=== PATIENT | female | born 1980 | race African-American/Black ===

== ENCOUNTER 2022-09-18 01:46 | Inpatient (IN) | payer MEDICAID ==
[~2022-09-18] VITALS: Ht 175.3 cm; Wt 77.1 kg
[2022-09-18 02:00] VITALS: BP 142/90
--- NOTE | 2022-09-18 03:00 | NUR ---
PHOTOGRAMMETRIST NOTES RECEIVED PT FROM Kali BUTTERFIELD. A/O X 4, ABLE TO MAKE NEEDS KNOWN. ORIENTED TO STAFF AND UNIT. PT IS ON NASAL CANULA OF 5LPM OF O2, TOLERATING WELL, BREATHING EVEN AND UNLABORED @ THIS TIME. PT WITH IV ACCESS @LAC #20G, PATENT, INTACT AND FLUSHES WELL WITH NO S/SX OF INFILTRATION 2 SITE NOTED. PT HAS EXTERNAL DENTAL HYGIENIST MOBILE COORDINATOR WITH CURRENT OF SINUS RHYTHM, HR OF 98 BPM. SKIN IS WARM AND DRY. PHOTOS OF SKIN ON LEFT HAND AND LEFT ARM IS TAKEN AND FILED ON PT CHART. SAFETY MEASURES INITIATED. BED PLACE AT ITS LOWEST AND LOCKED POSITION. SIDE RAILS UP X 2. BEDSIDE TABLE AND CALL LIGHT IS EASY REACH. BED ALARM IS ON. WILL CONTINUE TO MONITOR PT ACCORDINGLY.
[2022-09-18] MEDS ORDERED: LACT10SO3 PO (04:11)
[2022-09-18] MEDS ORDERED: PROM25TA15 PO (04:11)
[2022-09-18] MEDS ORDERED: DULO60CA45 PO (04:11)
[2022-09-18] MEDS ORDERED: PANT40TA49 PO (04:11)
[2022-09-18] MEDS ORDERED: SIME80TA15 PO (04:11)
[2022-09-18] MEDS ORDERED: ALBU18HF2 INH (04:11)
[2022-09-18] MEDS ORDERED: DIPH-530 PO (04:11)
[2022-09-18] MEDS ORDERED: OMEG1CAP55 PO (04:11)
[2022-09-18] MEDS ORDERED: HYDR500C2 PO (04:11)
[2022-09-18] MEDS ORDERED: ALPR1TAB7 PO (04:11)
[2022-09-18] MEDS ORDERED: CARI350T PO (04:11)
[2022-09-18] MEDS ORDERED: HYDR4TAB57 PO (04:11)
[2022-09-18] MEDS ORDERED: ASEN10TA9 SL (04:11)
[2022-09-18] MEDS ORDERED: METH750T3 PO (04:11)
[2022-09-18] MEDS ORDERED: FOLI1CAP7 PO (04:11)
[2022-09-18] MEDS ORDERED: METH10TA2 PO (04:11)
[2022-09-18] MEDS ORDERED: GABA-536 PO (04:11)
[2022-09-18] MEDS ORDERED: VARE1TAB PO (04:11)
[2022-09-18 05:18] VITALS: BP 142/90
[2022-09-18] MEDS: HYDROMORPHONE INJ 2 MG/ML DISP.SYRIN IV PRN ×5 (06:08→23:34)
[2022-09-18] MEDS: IV NS 0.9% 1,000 ML IV PRN ×2 (06:22→06:40)
--- NOTE | 2022-09-18 06:30 | NUR ---
INFORMED DR. WINTERS OF PT REQUEST FOR DIPHENHYDRAMINE INJ 25 MG (BENADRYL) FOR ITCHINESS AND PHENERGAN FOR HER NAUSEA. CHARGE NURSE ON DUTY IS INFORMED AND NOTIFIED. WILL CONTINUE MONITOR PT.
--- NOTE | 2022-09-18 07:00 | NUR ---
RN CLOSING NOTES. PT IS AWAKE AND RESTING COMFORTABLY IN BED, RESPONSIVE AND FOLLOWS VERBAL COMMAND. A/O X 4. NO S/SX OF RESPIRATORY DISTRESS NOTED @ THIS TIME. ON TELE MONITOR WITH CURRENT READING OF SINUS RHYTHM, HR OF 98 BPM. IV SITE ON LAC, PATENT, INTACT AND FLUSHES WELL WITH NO S & SX OF INFILTRATION. MEDICATIONS ADMINISTERED ACCORDINGLY PER MD'S ORDER. SAFETY MEASURES MAINTAINED. BED IS AT ITS LOWEST AND LOCKED POSITION. SIDE RAILS UP X 2. BEDSIDE TABLE AND CALL LIGHT W/IN REACH. BED ALARM IS ON. WILL ENDORSE TO THE NEXT SHIFT FOR CONTINUITY OF CARE.
--- NOTE | 2022-09-18 07:09 | NUR ---
AMUSEMENT OR RECREATION CARD CHECKER OPENING NOTES RECEIVED PATIENT AWAKE IN BED, A/Ox4, ABLE TO MAKE NEEDS KNOWN. ON 6L O2 VIA MASK, SOME ACCESSORY MUSCLE USE NOTED. ON TELE MONITORING SHOWING SINUS RHYTHM HR 85. PATIENT COMPLAINED OF ITCHINESS, WILL ADMIN PRN BENADRYL. IV ACCESS L AC #20 RUNNING NS @ 100 ML/HR, INTACT AND PATENT. PATIENT CONTINENT USES BEDSIDE COMMODE. SKIN INTACT. PATIENT COMPLAINED OF PAIN OF BACK, WILL ADMIN PAIN MEDICATION. SAFETY MEASURES IN PLACE: BED LOCKED AND IN LOWEST POSITION, HOB ELEVATED, CALL LIGHT WITHIN REACH, SIDE RAILS UPx2. WILL CONTINUE TO MONITOR.
[2022-09-18] MEDS ORDERED: IV NS 0.9% 1,000 ML IV PRN (07:30)
[2022-09-18] MEDS ORDERED: METHOCARBAMOL (750MG) 750 MG TABLET PO PRN (07:30)
[2022-09-18] MEDS ORDERED: MAGNESIUM HYDROXIDE 30 ML UDC PO PRN (07:30)
[2022-09-18] MEDS ORDERED: Z GUARD REMEDY 4 OZ OINT TP PRN (07:30)
[2022-09-18] MEDS ORDERED: ACETAMINOPHEN 325 MG TABLET PO PRN (07:30)
[2022-09-18] MEDS ORDERED: MAG HYDROX/AL HYDROX/SIMETH 30 ML UDC PO PRN (07:30)
[2022-09-18] MEDS ORDERED: ALPRAZOLAM 1 MG TABLET PO PRN (07:30)
[2022-09-18] MEDS: diphenhydrAMINE HCL 25 MG CAPSULE PO PRN ×2 (07:48→17:14)
[2022-09-18] MEDS ORDERED: LACTULOSE 10 G/15 ML UDC (PYXIS) PO PRN (08:00)
[2022-09-18] MEDS ORDERED: PANTOPRAZOLE 40 MG TABLET.DR PO PRN (08:00)
[2022-09-18 08:16] LABS: CALCIUM, SERUM 8.2 mg/dL (8.5-10.1); CREATININE 0.8 mg/dL (0.6-1.3); POTASSIUM 3.6 mmol/L (3.5-5.1)
[2022-09-18 08:24] LABS: BASOPHILS # (AUTO) 0.1 K/uL (0.0-0.2); BASOPHILS % (AUTO) 1.1 % (0.0-2.0); EOSINOPHILS % (AUTO) 3.1 % (0.0-6.0); HEMATOCRIT 21 % (33-45); HEMOGLOBIN 7.2 g/dL (11.5-14.8); LYMPHOCYTES # (AUTO) 3.6 K/uL (0.8-4.8); LYMPHOCYTES % (AUTO) 34.8 % (20.0-44.0); MEAN CORPUSCULAR HGB CONC 34 g/dl (31.0-36.0); MEAN CORPUSCULAR VOLUME 100 fL (82-100); MONOCYTES # (AUTO) 0.9 K/uL (0.1-1.30); MONOCYTES % (AUTO) 8.6 % (2.0-12.0); NEUTROPHILS # (AUTO) 5.4 K/uL (1.8-8.9); NEUTROPHILS % (AUTO) 52.4 % (43.0-81.0); PLATELET COUNT (AUTO) 302 K/uL (150-450); RED BLOOD CELL COUNT(AUTO) 2.11 MIL/uL (4.0-5.2); WHITE BLOOD COUNT (AUTO) 10.2 K/uL (4.3-11.0)
[2022-09-18] MEDS: VIT B CMPLX 3/FA/VIT C/BIOTIN 1 TAB TABLET PO SCH (08:42)
[2022-09-18] MEDS: PANTOPRAZOLE 40 MG TABLET.DR PO SCH (08:43)
[2022-09-18] MEDS: HYDROXYUREA 500 MG CAPSULE PO SCH (08:43)
[2022-09-18] MEDS: DULOXETINE HCL 30 MG CAPSULE.DR PO SCH ×2 (08:43→17:14)
[2022-09-18] MEDS: METHADONE HCL 10 MG TABLET PO SCH ×3 (08:44→21:00)
[2022-09-18] MEDS ORDERED: GABAPENTIN 300 MG CAPSULE PO SCH (09:00)
[2022-09-18] MEDS: CARISOPRODOL 350 MG TABLET PO SCH ×3 (09:27→17:13)
[2022-09-18] MEDS: ONDANSETRON HCL/PF 4 MG/2 ML VIAL IVP PRN ×2 (09:43→21:17)
--- NOTE | 2022-09-18 10:30 | NUR ---
RN NOTES PATIENT COMPLAINED OF NAUSEA AND PAIN. PRN ZOFRAN AND DILAUDID ADMINISTERED. WILL CONTINUE TO MONITOR.
[2022-09-18] MEDS: IV NS 0.9% 1,000 ML IV SCH ×2 (11:00→21:47)
[2022-09-18 12:00] VITALS: BP 109/79
[2022-09-18] MEDS: PROMETHAZINE HCL 25 MG TABLET PO SCH ×2 (12:26→19:55)
[2022-09-18] MEDS: GABAPENTIN 300 MG CAPSULE PO SCH ×2 (12:26→17:13)
--- NOTE | 2022-09-18 12:51 | NUR ---
RN NOTES PATIENT REQUESTED NASAL CANNULA, GIVEN TO PATIENT AND IS SATURATING WELL, STILL SOME EPISODES OF SOB BUT SATURATING IS IN THE HIGH 90s. WILL CONTINUE TO MONITOR.
[2022-09-18] MEDS: SIMETHICONE 80 MG TAB.CHEW PO PRN (14:16)
[2022-09-18 15:05] LABS: BASOPHILS # (AUTO) 0.1 K/uL (0.0-0.2); BASOPHILS % (AUTO) 1.1 % (0.0-2.0); EOSINOPHILS % (AUTO) 3.6 % (0.0-6.0); HEMATOCRIT 22 % (33-45); HEMOGLOBIN 7.3 g/dL (11.5-14.8); LYMPHOCYTES # (AUTO) 4.3 K/uL (0.8-4.8); LYMPHOCYTES % (AUTO) 39.9 % (20.0-44.0); MEAN CORPUSCULAR HGB CONC 33 g/dl (31.0-36.0); MEAN CORPUSCULAR VOLUME 101 fL (82-100); MONOCYTES # (AUTO) 0.8 K/uL (0.1-1.30); MONOCYTES % (AUTO) 7.5 % (2.0-12.0); NEUTROPHILS # (AUTO) 5.2 K/uL (1.8-8.9); NEUTROPHILS % (AUTO) 47.9 % (43.0-81.0); PLATELET COUNT (AUTO) 294 K/uL (150-450); RED BLOOD CELL COUNT(AUTO) 2.16 MIL/uL (4.0-5.2); WHITE BLOOD COUNT (AUTO) 10.8 K/uL (4.3-11.0)
[2022-09-18 15:26] LABS: THYROID STIMULATING HORMONE 3.087 uIU/mL (0.358-3.74)
[2022-09-18 16:00] VITALS: BP 97/68
[2022-09-18 17:07] LABS: ALBUMIN 3.5 g/dL (3.4-5.0); BILIRUBIN,DIRECT 0.8 mg/dL (0.0-0.2); BILIRUBIN,TOTAL 1.6 mg/dL (0.2-1.0); TOTAL PROTEIN, SERUM 7.1 g/dL (6.4-8.2)
--- NOTE | 2022-09-18 17:23 | NUR ---
RN NOTES PATIENT COMPLAINED OF PAIN 9/10 OF BACK, PRN DILAUDID ADMINISTERED. PATIENT ALSO REQUESTED PRN BENADRYL. ADMINISTERED. WILL CONTINUE TO MONITOR.
--- NOTE | 2022-09-18 18:48 | NUR ---
HAIR SAMPLE MATCHER CLOSING NOTES PATIENT SLEEPING IN BED, A/Ox4, ABLE TO MAKE NEEDS KNOWN. STABLE ON 6L O2 VIA NC, SOME ACCESSORY MUSCLE USE NOTED. ON TELE MONITORING SHOWING SINUS RHYTHM TACH 104. IV ACCESS L AC #20 RUNNING NS @ 100 ML/HR, INTACT AND PATENT. PATIENT CONTINENT USES BEDSIDE COMMODE. SKIN INTACT. SAFETY MEASURES MAINTAINED: BED LOCKED AND IN LOWEST POSITION, HOB ELEVATED, CALL LIGHT WITHIN REACH, SIDE RAILS UPx2. WILL ENDORSE TO NEXT SHIFT ANY JEFF.
[2022-09-18 19:04] LABS: BAND % (MANUAL) 2 % (0.0-5.0); EOSINOPHILS % (MANUAL) 3 % (0-4); LYMPHOCYTES % (MANUAL) 38 % (16-48); MONOCYTES % (MANUAL) 4 % (0-11.0); NEUTROPHILS % (MANUAL) 53 (42-76)
[2022-09-18 20:40] VITALS: BP 95/63
--- NOTE | 2022-09-18 20:54 | NUR ---
RETAIL ADVERTISING ACCOUNT EXECUTIVE OPENING NOTES PATIENT SLEEPING IN BED, A/Ox4, ABLE TO MAKE NEEDS KNOWN. PT RECEIVED DESATURATING ON 6L O2 VIA NC, SOME ACCESSORY MUSCLE USE NOTED PT WAS TITRATED UP STILL DESATURATING 80% PT WAS PLACED ON NON REBREATHER AND RESPIRATORY THERAPIST ASSESSED PT PT WAS 100% ON NON REBREATHER PT WAS TITRATED DOWN TO SIMPLE MASK 10L BUT CONTINUOS TO HAVE EPISODES OF DESATURATION. DOCTOR WAS CONTACTED RECEIVED STAT ORDER FOR CTA CHEST FROM ELECTRIC HOIST OPERATOR DR SMITH AWARE OF PLAN BUT CONTINUOUS TO FOCUS ON PAIN MANAGEMENT EXPLAINED TO PT RISKS WITH PAIN MANAGEMENT AT THIS TIME SHE CONTINUOUS TO HAVE EPISODES OF DESATURATION TO THE 88-90%. RADIOLOGY DEPARTMENT CALLED CONFIRMED RECEIVE AND SEEN ORDER . LAB UNABLE TO DRAW BLOOD PT HAD MULTIPLE INFORMED DR RECEIVED OR VIVIEN FOR MIDLINE CHARGE NURSE AWARE. URBAN PLANNER AWARE.ON TELE MONITORING SHOWING SINUS RHYTHM TACH 104. IV ACCESS LAC #20 RUNNING NS @ 100 ML/HR, INTACT AND PATENT. SAFETY MEASURES MAINTAINED: BED LOCKED AND IN LOWEST POSITION, HOB ELEVATED, CALL LIGHT WITHIN REACH, SIDE RAILS UPx2.
--- NOTE | 2022-09-18 21:00 | NUR ---
RN NOTE PTS METHADONE HELD PT HAVING SOB DESATURATING AT THIS TIME 80S.
--- NOTE | 2022-09-18 21:23 | NUR ---
RN NOTE PRN ZOFRAN GIVEN FOR NAUSEA TOLERATED WELL.
[2022-09-18] MEDS ORDERED: ASENAPINE 10 MG SL SCH (22:00)
[2022-09-18] MEDS ORDERED: IOHEXOL-350 100 ML VIAL IV ONE (22:43)
[2022-09-18] MEDS ORDERED: IV NS 0.9% 250 ML IV ONE (22:43)
[2022-09-18] MEDS ORDERED: CT SWABBABLE VALVE TRANS SET 1 EA INFUS.SET MC ONE (22:43)
--- NOTE | 2022-09-18 23:55 | NUR ---
RN NOTE PRN DILAUDID GIVEN FOR PAIN TOLERATED WELL.
[2022-09-19 00:21] VITALS: BP 117/71
[2022-09-19] MEDS: PROMETHAZINE HCL 25 MG TABLET PO SCH ×4 (01:01→18:39)
[2022-09-19] MEDS: diphenhydrAMINE HCL 25 MG CAPSULE PO PRN ×2 (02:43→09:40)
[2022-09-19] MEDS: HYDROMORPHONE INJ 2 MG/ML DISP.SYRIN IV PRN ×6 (02:43→23:07)
--- NOTE | 2022-09-19 02:43 | NUR ---
RN NOTE PRN DILAUDID AND BENADRYL GIVE TOLERATED WELL.
[2022-09-19] MEDS: ONDANSETRON HCL/PF 4 MG/2 ML VIAL IVP PRN ×2 (04:31→15:22)
--- NOTE | 2022-09-19 04:32 | NUR ---
RN NOTE PRN ZOFRAN GIVEN FOR NAUSEA TOLERATED WELL.
[2022-09-19 04:41] VITALS: BP 128/71
--- NOTE | 2022-09-19 05:58 | NUR ---
RN NOTE PRN DILAUDID GIVEN TOLERATED WELL.
[2022-09-19 06:26] LABS: BASOPHILS # (AUTO) 0.1 K/uL (0.0-0.2); BASOPHILS % (AUTO) 1.2 % (0.0-2.0); EOSINOPHILS % (AUTO) 1.7 % (0.0-6.0); LYMPHOCYTES # (AUTO) 3.3 K/uL (0.8-4.8); LYMPHOCYTES % (AUTO) 36.9 % (20.0-44.0); MEAN CORPUSCULAR HGB CONC 34 g/dl (31.0-36.0); MEAN CORPUSCULAR VOLUME 100 fL (82-100); MONOCYTES # (AUTO) 0.7 K/uL (0.1-1.30); MONOCYTES % (AUTO) 7.5 % (2.0-12.0); NEUTROPHILS # (AUTO) 4.7 K/uL (1.8-8.9); NEUTROPHILS % (AUTO) 52.7 % (43.0-81.0); PLATELET COUNT (AUTO) 259 K/uL (150-450); RED BLOOD CELL COUNT(AUTO) 2.04 MIL/uL (4.0-5.2); WHITE BLOOD COUNT (AUTO) 8.8 K/uL (4.3-11.0)
[2022-09-19 06:34] LABS: CALCIUM, SERUM 7.9 mg/dL (8.5-10.1); CREATININE 0.7 mg/dL (0.6-1.3); MAGNESIUM 2.1 mg/dL (1.8-2.4); PHOSPHORUS 4.2 mg/dL (2.5-4.9); POTASSIUM 3.8 mmol/L (3.5-5.1)
[2022-09-19] MEDS: IV NS 0.9% 1,000 ML IV SCH ×2 (06:48→16:55)
[2022-09-19 06:56] LABS: HEMATOCRIT 20 % (33-45)
--- NOTE | 2022-09-19 07:50 | NUR ---
FINANCIAL SERVICE REPRESENTATIVE OPENING NOTE PATIENT SLEEPING IN BED, A/Ox4, ABLE TO MAKE NEEDS KNOWN. STABLE ON 10L O2 VIA FACEMASK, SOME ACCESSORY MUSCLE USE NOTED. ON TELE MONITORING SHOWING SR @92BPM. IV ACCESS L AC #20 RUNNING NS @ 100 ML/HR, INTACT AND PATENT. PATIENT CONTINENT USES BEDSIDE COMMODE. SKIN INTACT. SAFETY MEASURES MAINTAINED: BED LOCKED AND IN LOWEST POSITION, HOB ELEVATED, CALL LIGHT WITHIN REACH, SIDE RAILS UPx2. WILL CONTINUE TO MONITOR.
[2022-09-19 08:00] VITALS: BP 117/74
[2022-09-19] MEDS: GABAPENTIN 300 MG CAPSULE PO SCH ×3 (08:56→16:30)
[2022-09-19] MEDS: METHADONE HCL 10 MG TABLET PO SCH ×3 (08:56→21:54)
[2022-09-19] MEDS: HYDROXYUREA 500 MG CAPSULE PO SCH (08:57)
[2022-09-19] MEDS: PANTOPRAZOLE 40 MG TABLET.DR PO SCH (08:57)
[2022-09-19] MEDS: DULOXETINE HCL 30 MG CAPSULE.DR PO SCH ×2 (08:57→16:30)
[2022-09-19] MEDS: VIT B CMPLX 3/FA/VIT C/BIOTIN 1 TAB TABLET PO SCH (08:57)
[2022-09-19] MEDS ORDERED: FUROSEMIDE 20 MG/2 ML VIAL IV PRN (09:00)
[2022-09-19] MEDS: CARISOPRODOL 350 MG TABLET PO SCH ×3 (09:03→16:30)
--- NOTE | 2022-09-19 09:40 | NUR ---
RN NOTE PATIENT COMPLAINED OF PAIN 9/10 OF BACK, PRN DILAUDID ADMINISTERED. PATIENT ALSO REQUESTED PRN BENADRYL. ADMINISTERED. WILL CONTINUE TO MONITOR.
[2022-09-19 11:06] LABS: EOSINOPHILS % (MANUAL) 2 % (0-4); LYMPHOCYTES % (MANUAL) 44 % (16-48); MONOCYTES % (MANUAL) 6 % (0-11.0); NEUTROPHILS % (MANUAL) 48 (42-76)
[2022-09-19 12:01] VITALS: BP 132/87
[2022-09-19 12:10] LABS: HEMOGLOBIN 6.9 g/dL (11.5-14.8)
[2022-09-19] MEDS ORDERED: CT SWABBABLE VALVE TRANS SET 1 EA INFUS.SET MC ONE (12:14)
[2022-09-19] MEDS ORDERED: IV NS 0.9% 0 ML IV ONE (12:14)
[2022-09-19] MEDS ORDERED: IOHEXOL-350 100 ML VIAL IV ONE (12:14)
--- NOTE | 2022-09-19 12:35 | NUR ---
RN NOTE PATIENT COMPLAINED OF PAIN 9/10 OF BACK PAIN, PRN DILAUDID ADMINISTERED. WILL CONTINUE TO MONITOR.
[2022-09-19] MEDS: diphenhydrAMINE HCL 50 MG/ML VIAL IV PRN (12:46)
--- NOTE | 2022-09-19 15:40 | NUR ---
RN NOTE PATIENT COMPLAINED OF PAIN AND REQUESTED PRN DILAUDID, ADMINISTERED. WILL CONTINUE TO MONITOR.
[2022-09-19 16:02] VITALS: BP 125/79
--- NOTE | 2022-09-19 18:30 | NUR ---
LATEX THREAD MACHINE OPERATOR CLOSING NOTE PATIENT SLEEPING IN BED, A/Ox4, HER MOTHER BY BEDSIDE, ABLE TO MAKE NEEDS KNOWN. STABLE ON 15L O2 VIA NRM. ON TELE MONITORING SHOWING SINUS RHYTHM TACH 106. IV ACCESS L AC #20 RUNNING NS @ 100 ML/HR, INTACT AND PATENT. IV ACCESS R UA ML, INTACT AND PATENT, SL. PATIENT CONTINENT USES BEDSIDE COMMODE. PRESCRIBED MEDS GIVEN. AWAITING LAB FOR PRBC, ORDERED IN THE MORNING, CHECKED WITH LAB, NOT READY YET. SAFETY MEASURES MAINTAINED: BED LOCKED AND IN LOWEST POSITION, HOB ELEVATED, CALL LIGHT WITHIN REACH, SIDE RAILS UPx2. WILL ENDORSE TO NEXT SHIFT ANY JEFF.
[2022-09-19 20:00] VITALS: BP 125/69
--- NOTE | 2022-09-19 20:20 | NUR ---
PICTURE ENLARGER OPENING NOTES: RECEIVED PATIENT SLEEP IN BED ACCOMPANIED BY FAMILY, BED IN LOW POSITION, CALL LIGHTS WITHIN REACH, NO COMPLAIN OF PAIN AND DISCOMFORT AT THIS TIME, ON NONE REBREATHER MASK AT 15LPM SATURATING AT 98-100% PATIENT IS FOR BLOOD TRANSFUSION AWAITING FOR BLOOD, PATIENT ON TELE MONITOR -SR82, IV LINE AT RAC#20 WITH ONGOING 0.9NSS@100ML/HR INFUSING WELL, PATIENT KEPT CLEAN AND DRY ALL NEEDS MET WILL CONTINUE TO MONITOR
[2022-09-19] MEDS: CEFEPIME 2 GM in IV D5W 100 ML IV SCH (21:15)
[2022-09-19 21:21] LABS: HEMOGLOBIN 6.5 g/dL (11.5-14.8)
--- NOTE | 2022-09-19 21:45 | NUR ---
RN NOTES: RECEIVED A CRITICAL LABS OF HGB-6.5 ABD HCT-1.9 PREVIOUS AT 1118 HGB-6.9 AND HCT-20 PATIENT HAS A STANDING ORDER OF BLOOD TRANSFUSION OF 2 UNITS PRBC IN AM, PATIENT HAS A HX OF ANTIBODIES TO BLOOD PRODUCTS, SPOKE TO LABS MELVIN TO MADE A FOLLOW UP PER STAFF STILL AWAITING FOR BLOOD PRODUCT FROM [facility], HOSPITALIST DR MURRAY WAS MADE AWARE, WILL CONTINUE TO MONITOR.
[2022-09-20] VITALS: BP 138/97
[2022-09-20] MEDS: diphenhydrAMINE HCL 50 MG/ML VIAL IV PRN ×3 (00:36→23:10)
[2022-09-20] MEDS: PROMETHAZINE HCL 25 MG TABLET PO SCH ×4 (00:43→18:33)
[2022-09-20] MEDS: HYDROMORPHONE INJ 2 MG/ML DISP.SYRIN IV PRN ×6 (03:25→21:15)
[2022-09-20] MEDS: IV NS 0.9% 1,000 ML IV SCH ×3 (03:26→23:02)
[2022-09-20] MEDS: CEFEPIME 2 GM in IV D5W 100 ML IV SCH ×3 (05:17→21:35)
--- NOTE | 2022-09-20 06:58 | NUR ---
MILITARY LAWYER CLOSING NOTES: PATIENT AWAKE IN BED, ACCOMPANIED BY FAMILY, BED IN LOW POSITION CALL LIGHTS WITHIN REACH, NO COMPLAIN OF PAIN AND DISCOMFORT AT THIS TIME, ON NONE REBREATHER MASK AT 12LPM SATURATING WELL, PATIENT IS A/O X4 ABLE TO MAKE NEEDS KNOWN, AMBULATORY TO BED SIDE COMMODE WITH ASSIST, WITH IV LINE AT RAC#20 WITH ONGOING 0.9NSS@100ML/HR INFUSING WELL, WITH STEPHIE ML, ON TELE MONITOR- SR-100,PATIENT IS AWAITING FOR BLOOD TRANSFUSION WITH MOST RECENT HGB-6.5, NO BLEEDING WAS OBSERVED, PATIENT ON PAIN MANAGEMENT, KEPT CLEAN AND DRY ALL NEEDS MET ENDORSE TO INCOMING SHIFT.
--- NOTE | 2022-09-20 07:20 | NUR ---
MANUFACTURING ENGINEER ASSEMBLY OPENING NOTE RECEIVED PATIENT IN BED ALERT AND ORIENTED X4, ABLE TO MAKE NEEDS KNOWN. PATIENT ON OXYGEN AT 13LPM VIA NON REBREATHER MASK SATURATING AT 98%. ON HIGH BACK REST. COMPLAINED OF SOME DISCOMFORT, COMFORT MEASURES PROVIDED. ON TELE MONITOR READING ST AT 110 BPM. WITH LEFT UPPER ARM MIDLINE WITH ONGOING NS RUNNING AT 100ML/HR INFUSING WELL. STILL FOR BT OF 2U PRBC, NOT AVAILABLE AT THIS TIME, WILL FOLLOW UP. BED IN LOWEST LOCKED POSITION, ALARM ON, CALL LIGHT WITHIN REACH. WILL CONTINUE WITH PLAN OF CARE.
[2022-09-20 07:34] LABS: BASOPHILS # (AUTO) 0.1 K/uL (0.0-0.2); BASOPHILS % (AUTO) 0.8 % (0.0-2.0); EOSINOPHILS % (AUTO) 1.8 % (0.0-6.0); HEMATOCRIT 21 % (33-45); LYMPHOCYTES # (AUTO) 3.1 K/uL (0.8-4.8); LYMPHOCYTES % (AUTO) 32.1 % (20.0-44.0); MEAN CORPUSCULAR HGB CONC 34 g/dl (31.0-36.0); MEAN CORPUSCULAR VOLUME 102 fL (82-100); MONOCYTES # (AUTO) 0.8 K/uL (0.1-1.30); MONOCYTES % (AUTO) 8.2 % (2.0-12.0); NEUTROPHILS # (AUTO) 5.6 K/uL (1.8-8.9); NEUTROPHILS % (AUTO) 57.1 % (43.0-81.0); PLATELET COUNT (AUTO) 236 K/uL (150-450); RED BLOOD CELL COUNT(AUTO) 2.02 MIL/uL (4.0-5.2); WHITE BLOOD COUNT (AUTO) 9.7 K/uL (4.3-11.0)
[2022-09-20 07:39] LABS: HEMOGLOBIN 6.9 g/dL (11.5-14.8)
--- NOTE | 2022-09-20 07:45 | NUR ---
BOAT HOIST OPERATOR HELPER NOTE FOLLOW UP MADE REGARDING BLOOD FROM [facility]. SPOKE WITH NOVEMBER, SHE SAID THERE IS STILL NO BLOOD AVAILABLE FROM [facility]. FOR BLOOD TRANSFUSION OF 2 UNITS PRBC ONCE AVAILABLE.
[2022-09-20 08:00] VITALS: BP 116/81
[2022-09-20 08:07] LABS: HAPTOGLOBIN <10 mg/dL (33-278); IMMUNOGLOBULIN A, SERUM 258 mg/dL (87-352); IMMUNOGLOBULIN G, SERUM 1714 mg/dL (586-1602); IMMUNOGLOBULIN M, SERUM 254 mg/dL (26-217)
[2022-09-20] MEDS: HYDROXYUREA 500 MG CAPSULE PO SCH (09:00)
[2022-09-20] MEDS: VIT B CMPLX 3/FA/VIT C/BIOTIN 1 TAB TABLET PO SCH (09:34)
[2022-09-20] MEDS: VARENICLINE TARTRATE 1 MG PO SCH ×2 (09:34→18:23)
[2022-09-20] MEDS: DULOXETINE HCL 30 MG CAPSULE.DR PO SCH ×2 (09:34→18:23)
[2022-09-20] MEDS: PANTOPRAZOLE 40 MG TABLET.DR PO SCH (09:35)
[2022-09-20] MEDS: CARISOPRODOL 350 MG TABLET PO SCH ×3 (09:35→18:26)
[2022-09-20] MEDS: GABAPENTIN 300 MG CAPSULE PO SCH ×3 (09:35→18:22)
[2022-09-20] MEDS: METHADONE HCL 10 MG TABLET PO SCH ×3 (09:36→21:00)
[2022-09-20] MEDS: [UNRECOGNIZED DRUG - OTHER] PO SCH (09:36)
[2022-09-20] MEDS ORDERED: PROCHLORPERAZINE EDISYLATE 10 MG/2 ML VIAL IVP PRN (11:00)
[2022-09-20] MEDS: SIMETHICONE 80 MG TAB.CHEW PO PRN (12:32)
[2022-09-20 12:41] LABS: EOSINOPHILS % (MANUAL) 1 % (0-4); LYMPHOCYTES % (MANUAL) 31 % (16-48); MONOCYTES % (MANUAL) 6 % (0-11.0); NEUTROPHILS % (MANUAL) 62 (42-76)
--- NOTE | 2022-09-20 13:00 | NUR ---
ORACLE REPORTS DEVELOPER NOTE SPOKE WITH MAY OF BLOOD BANK TO CHECK ON THE BLOOD. SHE SAID THAT PER [facility], THE TECH IN CHARGE OF THE BLOOD WILL COME IN AT 1500, THEY WILL CALL WHEN THEY HEAR ANYTHING. CHARGE NURSE NOTIFIED.
[2022-09-20 15:07] LABS: *SPE ALPHA-1-GLOBULIN 0.3 g/dL (0.0-0.4); *SPE ALPHA-2-GLOBULIN 0.5 g/dL (0.4-1.0); *SPE BETA GLOBULIN 0.8 g/dL (0.7-1.3); *SPE M-SPIKE Not Observed g/dL (Not Observed)
--- NOTE | 2022-09-20 16:01 | NUR ---
NEEDLE LOOM OPERATOR NOTE FOLLOW UP MADE IN BLOOD BANK, SPOKE WITH AUGUSTUS. BLOOD STILL NOT AVAILABLE.
[2022-09-20 16:07] VITALS: BP 96/56
[2022-09-20] MEDS: ONDANSETRON HCL/PF 4 MG/2 ML VIAL IVP PRN (17:18)
--- NOTE | 2022-09-20 19:15 | NUR ---
HEARING AID CONSULTANT CLOSING NOTE PATIENT IN BED ASLEEP BUT EASILY WOKEN UP. SHE IS ALERT AND ORIENTED X4, ABLE TO MAKE NEEDS KNOWN. PATIENT ON OXYGEN AT 10LPM VIA NON REBREATHER MASK SATURATING AT 98%, NOTED TO DESATURATE WHEN SHE SLEEPS DEPENDING ON POSITION AND WHEN SHE ACCIDENTALLY REMOVES HER MASK. ON HIGH BACK REST. COMPLAINED OF SOME DISCOMFORT, COMFORT MEASURES PROVIDED. ON TELE MONITOR READING ST AT 110 BPM. WITH LEFT UPPER ARM MIDLINE WITH ONGOING NS RUNNING AT 100ML/HR INFUSING WELL. PAIN MANAGED ACCORDINGLY. STILL FOR BT OF 2U PRBC, NOT AVAILABLE SPOKE WITH AUGUSTUS CHARGE NURSE AWARE. BED IN LOWEST LOCKED POSITION, ALARM ON, CALL LIGHT WITHIN REACH. WILL ENDORSE TO NEXT SHIFT FOR CONTINUITY OF CARE.
--- NOTE | 2022-09-20 19:30 | NUR ---
COTTON TIPPER OPENING NOTE PATIENT IN BED ASLEEP BUT EASILY WOKEN UP. SHE IS ALERT AND ORIENTED X4, ABLE TO MAKE NEEDS KNOWN. PATIENT ON OXYGEN AT 14LPM VIA NON REBREATHER MASK SATURATING AT 98%, NOTED TO DESATURATE WHEN SHE SLEEPS DEPENDING ON POSITION AND WHEN SHE ACCIDENTALLY REMOVES HER MASK. ON HIGH BACK REST. COMPLAINED OF SOME DISCOMFORT, COMFORT MEASURES PROVIDED. ON TELE MONITOR READING ST AT 110 BPM. WITH LEFT UPPER ARM MIDLINE WITH ONGOING NS RUNNING AT 100ML/HR INFUSING WELL. PAIN MANAGED ACCORDINGLY. STILL FOR BT OF 2U PRBC, NOT AVAILABLE, CHARGE NURSE AWARE. BED IN LOWEST LOCKED POSITION, ALARM ON, CALL LIGHT WITHIN REACH.
[2022-09-20 20:00] VITALS: BP 88/69
[2022-09-20 20:50] LABS: HEMOGLOBIN 6.7 g/dL (11.5-14.8)
--- NOTE | 2022-09-20 22:00 | NUR ---
RN NOTE RECEIVED CALL FROM LAB PT HGB 6.7 PER BLOOD BANK WILL REACH OUT TO [facility] AGAIN REGARDING BLOOD WITH CALL US BACK WITH ANY UPDATES.
--- NOTE | 2022-09-20 22:14 | NUR ---
RN NOTE PRN DILAUDID GIVEN TOLERATED WELL.
--- NOTE | 2022-09-20 23:16 | NUR ---
RN NOTE PRN BENADRYL GIVEN AND TOLERATED WELL. PT NEED BY REGIONAL RECRUITER AT THIS TIME NO ORDERS A THIS TIME.
[2022-09-21] VITALS (17 sets, daily range): BP systolic 27–145; BP diastolic 18–103
[2022-09-21] MEDS: PROMETHAZINE HCL 25 MG TABLET PO SCH ×5 (00:14→17:21)
[2022-09-21] MEDS: HYDROMORPHONE INJ 2 MG/ML DISP.SYRIN IV PRN ×6 (00:45→20:19)
--- NOTE | 2022-09-21 04:22 | NUR ---
RN NOTE SPOKE TO BLOOD BANK MELVIN WE ARE STILL WAITING FOR THE BLOOD FROM THE [facility] NO UPDATES AT THIS TIME.
[2022-09-21] MEDS: CEFEPIME 2 GM in IV D5W 100 ML IV SCH ×3 (04:49→20:16)
--- NOTE | 2022-09-21 05:10 | NUR ---
RN NOTE PRN DILAUDID GIVEN TOLERATED WELL.
[2022-09-21 06:15] LABS: BASOPHILS # (AUTO) 0.1 K/uL (0.0-0.2); BASOPHILS % (AUTO) 0.7 % (0.0-2.0); EOSINOPHILS % (AUTO) 0.5 % (0.0-6.0); HEMATOCRIT 20 % (33-45); LYMPHOCYTES # (AUTO) 3.3 K/uL (0.8-4.8); LYMPHOCYTES % (AUTO) 31.4 % (20.0-44.0); MEAN CORPUSCULAR HGB CONC 34 g/dl (31.0-36.0); MEAN CORPUSCULAR VOLUME 102 fL (82-100); MONOCYTES # (AUTO) 1.1 K/uL (0.1-1.30); MONOCYTES % (AUTO) 10.1 % (2.0-12.0); NEUTROPHILS % (AUTO) 57.3 % (43.0-81.0); PLATELET COUNT (AUTO) 194 K/uL (150-450); RED BLOOD CELL COUNT(AUTO) 1.94 MIL/uL (4.0-5.2); WHITE BLOOD COUNT (AUTO) 10.4 K/uL (4.3-11.0)
[2022-09-21 06:16] LABS: HEMOGLOBIN 6.6 g/dL (11.5-14.8)
[2022-09-21 06:40] LABS: POTASSIUM 3.8 mmol/L (3.5-5.1)
[2022-09-21 06:41] LABS: CALCIUM, SERUM 7.6 mg/dL (8.5-10.1); MAGNESIUM 2.2 mg/dL (1.8-2.4); PHOSPHORUS 3.4 mg/dL (2.5-4.9)
--- NOTE | 2022-09-21 06:56 | NUR ---
ACID TREATER CLOSING NOTE PATIENT IN BED ASLEEP BUT EASILY WOKEN UP. SHE IS ALERT AND ORIENTED X4, ABLE TO MAKE NEEDS KNOWN. PATIENT ON OXYGEN AT 14LPM VIA NON REBREATHER MASK SATURATING AT 98%NOTED TO DESATURATE WHEN SHE SLEEPS DEPENDING ON POSITION AND WHEN SHE ACCIDENTALLY REMOVES HER MASK. ON HIGH BACK REST. COMPLAINED OF SOME DISCOMFORT, COMFORT MEASURES PROVIDED. ON TELE MONITOR READING ST AT 105 BPM. WITH LEFT UPPER ARM MIDLINE S/L WITH LAC #20G WITH ONGOING NS RUNNING AT 100ML/HR INFUSING WELL. PAIN MANAGED ACCORDINGLY. STILL FOR BT OF 2U PRBC, NOT AVAILABLE, CHARGE NURSE AWARE. BED IN LOWEST LOCKED POSITION, ALARM ON, CALL LIGHT WITHIN REACH.
--- NOTE | 2022-09-21 07:30 | NUR ---
PICKER FEEDER NOTES PT IN BED, AWAKE, ALERT AND ORIENTED, NO COMPLAINT OF PAIN AT THIS TIME, NOT IN DISTRESS, O2 SAT AT 93%, CALL LIGHT WITHIN REACH, KEPT COMFORTABLE IN BED.
[2022-09-21] MEDS: GABAPENTIN 300 MG CAPSULE PO SCH ×4 (08:10→17:19)
[2022-09-21] MEDS: PANTOPRAZOLE 40 MG TABLET.DR PO SCH (08:10)
[2022-09-21] MEDS: DULOXETINE HCL 30 MG CAPSULE.DR PO SCH ×2 (08:10→17:19)
[2022-09-21] MEDS: CARISOPRODOL 350 MG TABLET PO SCH ×4 (08:10→17:19)
[2022-09-21] MEDS: HYDROXYUREA 500 MG CAPSULE PO SCH (08:10)
[2022-09-21] MEDS: VIT B CMPLX 3/FA/VIT C/BIOTIN 1 TAB TABLET PO SCH (08:10)
[2022-09-21] MEDS: METHADONE HCL 10 MG TABLET PO SCH ×4 (08:11→21:00)
[2022-09-21] MEDS: [UNRECOGNIZED DRUG - OTHER] PO SCH (08:12)
[2022-09-21] MEDS: VARENICLINE TARTRATE 1 MG PO SCH ×2 (08:12→17:19)
[2022-09-21] MEDS: IV NS 0.9% 1,000 ML IV SCH (08:27)
[2022-09-21] MEDS: diphenhydrAMINE HCL 50 MG/ML VIAL IV PRN ×2 (08:37→16:03)
[2022-09-21] MEDS: ONDANSETRON HCL/PF 4 MG/2 ML VIAL IVP PRN ×2 (08:37→16:03)
[2022-09-21 09:15] LABS: HEMOGLOBIN 6.6 g/dL (11.5-14.8)
--- NOTE | 2022-09-21 09:51 | NUR ---
HISTORICAL SITE GUIDE NOTES PT SEEN AND EXAMINED BY DR. DAVIS, NEW ORDERS GIVEN, NOTED AND CARRIED OUT.
[2022-09-21] MEDS ORDERED: NA PHOS,M-B/NA PHOS,DI-BA 1 EA ENEMA RC ONE (10:00)
--- NOTE | 2022-09-21 10:55 | NUR ---
STAFF DEVELOPMENT EDUCATOR NOTES PT SEEN AND EXAMINED BY DR. GRIFFITH, PLAN OF CARE DISCUSSED WITH PT AND PT'S MOM KODY AT BEDSIDE, VERBALIZED UNDERSTANDING.
[2022-09-21] MEDS: methylPREDNISolone SOD SUCC 125 MG/2ML VIAL IV SCH ×2 (11:47→17:19)
--- NOTE | 2022-09-21 14:49 | NUR ---
PROJECT BUYER NOTES NEW TYPE AND SCREEN DONE, AWAITING PRBC, PER BLOOD BANK BLOOD IS WITH THEM BUT NEED TO CHECK TYPE AND SCREEN RESULT, SAID MIGHT TAKE FEW HOURS, PATIENT AND MOM AWARE.
--- NOTE | 2022-09-21 14:52 | NUR ---
SEISMIC SURVEY ASSISTANT NOTES 1300 MEDS NOT GIVEN, PT SLEEPY AND DROWSY, O2 SAT AT 91% ON NON REBREATHER MASK AT 15LMP.
[2022-09-21 15:17] LABS: BASOPHILS % (MANUAL) 0 % (0.0-2.0); EOSINOPHILS % (MANUAL) 0 % (0-4); LYMPHOCYTES % (MANUAL) 32 % (16-48); MONOCYTES % (MANUAL) 4 % (0-11.0); NEUTROPHILS % (MANUAL) 64 (42-76)
--- NOTE | 2022-09-21 16:50 | NUR ---
EQUIPMENT CLEANER AND TESTER NOTES FOLLOWED UP PRBC AT THE BLOOD BANK, STILL NOT READY FOR VOICE TEACHER YET, WILL CONTINUE TO FOLLOW UP.
--- NOTE | 2022-09-21 18:54 | NUR ---
STOKER ERECTOR NOTES PT IN BED, ASLEEP, EASY TO AROUSE, ALERT AND VERBALLY RESPONSIVE, VITALS STABLE, NOT IN DISTRESS, O2 SAT ON THE LOW 90S WITH 15LPM VIA NRB MASK, STARTED BLOOD TRANSFUSION, TOLERATES WELL, WILL CONTINUE TO MONITOR AND WILL ENDORSE TO PHOTO OFFSET PRINTER NURSE FOR CONTINUITY OF CARE.
--- NOTE | 2022-09-21 19:30 | NUR ---
APPLIED SCIENCE AND TECHNOLOGIES DEAN NOTES ST-104 ON TELE MONITOR.RECEIVED ON BED A/O C4,WITH FAMILY MEMBERS AT BEDSIDE.ON NON REBREATHER MASK AT 1OLITERS TO KEEP O2 SAT ABOVE 90%. 96% AT THE MOMENT.FIRST UNIT OF PRBC IN PROGRESS AT 100ML/HR INFUSING ON JAEL MIDLINE,VIA IV PUMP.WITH SALINE LOCK ON LEFT AC FOR MEDS.CONTINENT OF B/B BY BSC OR BEDPAN.HOB ELEVATED,DIMINISHED BREATH SOUND ON RIGHT LOWER LUNG FIELD.FULL CODE,CALL LIGHT IN REACH,WILL CONTINUE TO MONITOR STATUS.
--- NOTE | 2022-09-21 19:55 | NUR ---
COMMERCIAL TRAILER TRUCK DRIVER NOTES FEELING NAUSEATED,COMPAZINE 2.5MG IV GIVEN ORDERED.
--- NOTE | 2022-09-21 20:19 | NUR ---
AMERICAN HISTORY TEACHER NOTES PAIN MANAGEMENT C/O GENERALIZED PAIN 8/10 ON PAIN SCALE,DILAUDID 2MG IV GIVEN ORDERED AND PER PATIENT REQUEST.VITAL SIGNS STABLE.
--- NOTE | 2022-09-21 21:00 | NUR ---
SUPERVISOR TRAIN OPERATIONS NOTES METHADONE 10MG PO HELD,PATIENT SLEEPING,DROWSY WITH DILAUDID 2MG IV ADMINISTERED AT 2019
--- NOTE | 2022-09-21 21:52 | NUR ---
MECHANICAL CAD DESIGNER NOTES FIRST UNIT OF PRBC COMPLETED,NO SOB NOTED,NS FLUSHING INITIATED.HOB ELEVATED,O2 AT 15L NON RE BREATHER MASK,O2 SAT 97%.
--- NOTE | 2022-09-21 22:00 | NUR ---
DIRECTOR OF PROGRAMMING NOTES WENT INTO THE ROOM AND NOTED PATIENT HAVING JITTERY MOVEMENT ON LOWER EXTREMITIES.PER RECORD,PATIENT DONT HAVE ANY HX ON SEIZURE ACTIVITY.
--- NOTE | 2022-09-21 22:05 | NUR ---
SIGNAL AND COMMUNICATIONS MAINTAINER NOTES RUBBER CUTTER AND SHAPE CARVER FISH WENT DOWN TO REASSESS PATIENT.
--- NOTE | 2022-09-21 22:08 | NUR ---
ECONOMICS LECTURER NOTES ACCU-CHECK BLOOD SUGAR CHECK 132MG/DL THIS TIME,NONE RESPONSIVE.
--- NOTE | 2022-09-21 22:15 | NUR ---
DIGITAL PRINT OPERATOR NOTES RAPID RESPONSE WAS CALLED THIS TIME.
--- NOTE | 2022-09-21 22:25 | NUR ---
LEAD MANUFACTURING ENGINEERING TECH NOTES NARCAN 0.4 MG SLOW IVP GIVEN BY HOSPITALIST JUSTIN SLOAN.AWAKE,OPEN EYES BUT STILL NON VERY DROWSY.VITAL SIGNS OF 170/72,HR-122,O2 SAT 100%
--- NOTE | 2022-09-21 22:30 | NUR ---
GYROSCOPE TECHNICIAN NOTES STILL VERY DROWSY,OPEN EYES,NO FOCUS, ANOTHER DOSE OF NARCAN 0.4MG GIVEN IV PUSH BY BISCUITWARE BRUSHER NURSE FISH,BP 132/19.BOLUS ON GOING.
[2022-09-21] MEDS ORDERED: NALOXONE HCL 0.4 MG/ML AMPUL ONE ×3 (22:33→23:09)
--- NOTE | 2022-09-21 22:45 | NUR ---
HOT ROLL LAMINATOR NOTES ABD WAS DRAWN,AWAITING FOR RESULT.
--- NOTE | 2022-09-21 23:00 | NUR ---
SALES SUPPORT REP NOTES PATIENT WAS TRANSFERRED TO ICU FOR FURTHER EVALUATION AND MANAGEMENT.
[2022-09-21] MEDS ORDERED: NALOXONE HCL 0.4 MG/ML AMPUL IV STA (23:13)
--- NOTE | 2022-09-21 23:15 | NUR ---
CARBON FURNACE OPERATOR NOTES PLACED A CALL TO MOTHER NAMED KODY BRENNER,MADE AWARE OF PATIENT STATUS.
[2022-09-21 23:25] LABS: BASOPHILS % (AUTO) 0.4 % (0.0-2.0); EOSINOPHILS % (AUTO) 0.2 % (0.0-6.0); HEMATOCRIT 21 % (33-45); LYMPHOCYTES # (AUTO) 3.3 K/uL (0.8-4.8); LYMPHOCYTES % (AUTO) 39.5 % (20.0-44.0); MEAN CORPUSCULAR HGB CONC 31 g/dl (31.0-36.0); MEAN CORPUSCULAR VOLUME 104 fL (82-100); MONOCYTES # (AUTO) 0.3 K/uL (0.1-1.30); MONOCYTES % (AUTO) 3.9 % (2.0-12.0); NEUTROPHILS # (AUTO) 4.7 K/uL (1.8-8.9); PLATELET COUNT (AUTO) 133 K/uL (150-450); WHITE BLOOD COUNT (AUTO) 8.5 K/uL (4.3-11.0)
[2022-09-21 23:29] LABS: RED BLOOD CELL COUNT(AUTO) 1.98 MIL/uL (4.0-5.2)
[2022-09-21] MEDS ORDERED: FUROSEMIDE 40 MG/4 ML VIAL IV ONE (23:30)
[2022-09-21 23:33] LABS: HEMOGLOBIN 6.4 g/dL (11.5-14.8)
[2022-09-21] MEDS ORDERED: NOREPINEPHRINE 4 MG/4 ML AMPUL IV ONE (23:41)
[2022-09-21] MEDS: NOREPINEPHRINE 8 MG in IV NS 0.9% 242 ML IV PRN (23:58)
--- NOTE | 2022-09-21 23:58 | NUR ---
STRIKER OUT,S/P RAPID , TRANSFER THE PT FROM [facility]. PT IS ALTERED. AGONEAL BREATHING. ER MD INTUBATED. PT IS STILL UNSTABLE. BLOOD PRESSURE LOW. LEVOPHED STARTED. FC PLACED, NGT INSERTED, ABDOMEN IS DISTENTED . WILL MONITOR.
[2022-09-22] VITALS (24 sets, daily range): BP systolic 28–64; BP diastolic 20–42
[2022-09-22] MEDS: PROMETHAZINE HCL 25 MG TABLET PO SCH
[2022-09-22] MEDS ORDERED: NOREPINEPHRINE 8 MG in IV NS 0.9% 242 ML IV PRN ×2
[2022-09-22 00:08] LABS: CALCIUM, SERUM 7.1 mg/dL (8.5-10.1); CARBON DIOXIDE 13 mmol/L (21-32); CHLORIDE 107 mmol/L (98-107); CREATININE 1.6 mg/dL (0.6-1.3); GLUCOSE 104 mg/dL (74-106); POTASSIUM 5.7 mmol/L (3.5-5.1); SODIUM SERUM 141 mmol/L (136-145); UREA NITROGEN, BLOOD 16 mg/dL (7-18)
[2022-09-22 00:17] LABS: ALANINE AMINOTRANSFERASE 68 U/L (12-78); ALBUMIN 2.7 g/dL (3.4-5.0); ALKALINE PHOSPHATASE 107 U/L (46-116); ASPARTATE AMINOTRANSFERASE 89 U/L (15-37); BILIRUBIN,TOTAL 5.8 mg/dL (0.2-1.0); MAGNESIUM 2.7 mg/dL (1.8-2.4); TOTAL PROTEIN, SERUM 5.7 g/dL (6.4-8.2)
[2022-09-22] MEDS ORDERED: EPINEPHRINE (1:10,000) SYRINGE 1 MG/10 ML DISP.SYRIN IV ONE (01:00)
[2022-09-22] MEDS ORDERED: SODIUM BICARBONATE SYR 50 MEQ/50 ML DISP.SYRIN IV ONE ×3 (01:00→12:57)
[2022-09-22] MEDS ORDERED: EPINEPHRINE (1:1000) 1 MG/ML AMPUL ONE ×2 (01:28→03:50)
[2022-09-22] MEDS ORDERED: DEXTROSE 50%-WATER 50 ML DISP.SYRIN IVP ONE (01:30)
[2022-09-22] MEDS ORDERED: INSULIN REGULAR, HUMAN 100 UNIT/ML 3 ML VIAL SQ ONE (01:30)
[2022-09-22] MEDS ORDERED: Calcium Gluconate 1GM/10ML 4.65 MEQ in IV NS 0.9% 100 ML IV ONE (01:30)
[2022-09-22] MEDS ORDERED: ZOSYN IVPB 3.375 G in IV D5W 50ml IV SCH (01:30)
[2022-09-22] MEDS ORDERED: SODIUM POLYSTYRENE SULFONATE 15 G/60 ML BOTTLE NG ONE (01:30)
--- NOTE | 2022-09-22 01:32 | NUR ---
ABG DONE POST INTUBATION. NOTIFIED LIEUTENANT COLONEL RENEE AND JUSTIN SLOAN WAGE AND HOUR INVESTIGATOR WITH THE RESULT. RATE CHANGED TO 28, VT TO 550.
[2022-09-22] MEDS: EPINEPHRINE (1:1000) 5 MG in IV NS 0.9% 245 ML IV PRN ×2 (01:33→02:33)
[2022-09-22] MEDS ORDERED: Calcium Gluconate 0.465 MEQ/ML VIAL IV ONE (01:40)
[2022-09-22] MEDS ORDERED: INSULIN REGULAR, HUMAN 100 UNIT/ML 3 ML VIAL ONE (01:50)
[2022-09-22] MEDS ORDERED: NOREPINEPHRINE 4 MG/4 ML AMPUL IV ONE ×2 (01:50→03:32)
[2022-09-22 01:57] LABS: LYMPHOCYTES % (MANUAL) 49 % (16-48); MONOCYTES % (MANUAL) 2 % (0-11.0); NEUTROPHILS % (MANUAL) 49 (42-76)
[2022-09-22] MEDS ORDERED: VANCOMYCIN 1.5 GM in IV D5W 500ml IV ONE (02:00)
[2022-09-22] MEDS ORDERED: PHENYLEPHRINE 100 MG in IV NS 0.9% 240 ML IV PRN (02:00)
[2022-09-22] MEDS ORDERED: HYDROCORTISONE SOD SUCCINATE 100 MG/2 ML VIAL IV SCH (02:00)
[2022-09-22] MEDS ORDERED: FLUDROCORTISONE 0.1 MG TABLET GT SCH (02:00)
[2022-09-22] MEDS ORDERED: Sodium Bicarbonate 150 MEQ in IV D5/0.45 NACL 1,000 ML IV PRN (02:00)
--- NOTE | 2022-09-22 02:00 | NUR ---
MECHANICAL TECHNICIAN. FAMILY AT BED SIDE, NOW PT IS DNR. MOTHER DECIDED TO CHANGE CODE STATUS. ALL ABNORMAL LABS RESULT NOTIFIED HAND DRILLER JUSTIN.
[2022-09-22] MEDS ORDERED: PHENYLEPHRINE 10 MG/ML VIAL ONE (02:06)
[2022-09-22] MEDS: methylPREDNISolone SOD SUCC 125 MG/2ML VIAL IV SCH (02:21)
[2022-09-22] MEDS ORDERED: PIPERACILLIN /TAZOBACTAM 3.375 G VIAL IV ONE (02:40)
--- NOTE | 2022-09-22 02:51 | NUR ---
ENVIRONMENTAL TEST TECHNICIAN. PT MOTHER AT BED SIDE. PT IS VERY UNSTABLE. EPI DRIP, YUMIKO AND VASO STARTED, PUPIL DILATED AND FIXED. NO GAG REFLEX. LT FEM A LINE. IV RT UPPER ARM MID LINE. BICARB DRIP RUNNING. FC PATENT. NGT LOW INTERMITTENT SUCTION. WILL MONITOR VITALS.
[2022-09-22 02:53] LABS: BILIRUBIN,DIRECT 4.3 mg/dL (0.0-0.2)
[2022-09-22] MEDS ORDERED: VANCOMYCIN 1 GM VIAL ONE (02:59)
[2022-09-22] MEDS: NOREPINEPHRINE 8 MG in IV NS 0.9% 242 ML IV PRN (03:40)
[2022-09-22 03:52] LABS: BILIRUBIN,URINE 2+ (NEGATIVE); COLOR,URINE DARK YELLOW (YELLOW); LEUKOCYTE ESTERASE ,URINE NEGATIVE (NEGATIVE); NITRITE, URINE NEGATIVE (NEGATIVE); PH,URINE 5.5 (5.0-8.0); PROTEIN,URINE 1+ mg/dl (NEGATIVE); UGLUCOSE NEGATIVE (NEGATIVE); UROBILINOGEN,URINE 0.2 EU/dL (0.2)
[2022-09-22 04:06] LABS: BACTERIA,URINE Rare /HPF (None Seen); HYALINE CASTS, URINE Few /LPF (None Seen); RBC,URINE 0-2 /HPF (0-2); SQUAMOUS EPITHELIAL CELL,UR Few /HPF (None Seen)
[2022-09-22] MEDS: CEFEPIME 2 GM in IV D5W 100 ML IV SCH (05:14)
--- NOTE | 2022-09-22 05:32 | NUR ---
C4 PLANNER. PT AUNT AT BED SIDE. MOTHER DECIDED TO STOP ALL PRESSERS. YUMIKO,LEVO. EPI DRIP STOPPED AT 0520.
[2022-09-22] MEDS ORDERED: LORAZEPAM INJ 2 MG/ML VIAL IV PRN (06:00)
--- NOTE | 2022-09-22 06:41 | NUR ---
neonatal icu coordinator. pt at 0611. notified [facility] . body released. spoke person is alejandra. case # [id number].
--- NOTE | 2022-09-22 06:46 | NUR ---
ANTIQUE FURNITURE REPAIRER. NOTIFIED SENIOR QA TESTER. BODY RELEASED. SPOKE PERSON IS LELAND.
--- NOTE | 2022-09-22 06:47 | NUR ---
GROUNDS CLEANER. POST MORTUM CARE GIVEN.
--- NOTE | 2022-09-22 07:18 | NUR ---
INSTITUTION LIBRARIAN. BODY SEND TO [facility]
[2022-09-22 07:19] LABS: ABG BASE EXCESS -2.7 mmol/L; ABG OXYGEN SATURATION 95.7 % (92.0-98.5); ABG PCO2 38.6 mmHg (35.0-45.0); ABG PH 7.378 (7.350-7.450); ABG PO2 99.1 mmHg (75.0-100.0); AaDO2 575.3 mmHg; COHb 2.3 % (0.5-1.5); MetHb 0.2 % (0.0-1.5); O2Hb 93.3 % (94.0-97.0); SITE, ABG Right Radial; VENT MODE, BG NRB 100%
[2022-09-22] MEDS ORDERED: ROCURONIUM BROMIDE 50 MG/5 ML IV ONE (12:04)
[2022-09-22] MEDS ORDERED: ETOMIDATE 2 MG/ML VIAL IV ONE (12:04)
[2022-09-22] MEDS ORDERED: NALOXONE HCL 0.4 MG/ML AMPUL IV ONE (12:57)
[2022-09-22] MEDS ORDERED: EPINEPHRINE (1:10,000) SYRINGE 1 MG/10 ML DISP.SYRIN IVP ONE ×2 (12:57)
== END 2022-09-22 12:58 | DRG 662 ==
LOC: EDBD 01:46 → TELE 01:46 → ICU 09-21 23:17
PROVIDERS: ADMIT Internal Medicine; ATTEND Nurse Practitioner Family
PROC: 30233N1 Transfusion of Nonautologous Red Blood Cells into Peripheral Vein, Percutaneous Approach (ICD-10-PCS; 2022-09-19)
PROC: 05HB33Z Insertion of Infusion Device into Right Basilic Vein, Percutaneous Approach (ICD-10-PCS; 2022-09-19)
PROC: 5A1935Z Respiratory Ventilation, Less than 24 Consecutive Hours (ICD-10-PCS; principal; 2022-09-22)
PROC: 0BH18EZ Insertion of Endotracheal Airway into Trachea, Via Natural or Artificial Opening Endoscopic (ICD-10-PCS; 2022-09-22)
PROC: 04HL33Z Insertion of Infusion Device into Left Femoral Artery, Percutaneous Approach (ICD-10-PCS; 2022-09-22)
DX: D57.00 Hb-SS disease with crisis, unspecified (principal); J96.21 Acute and chronic respiratory failure with hypoxia; I63.9 Cerebral infarction, unspecified; R57.9 Shock, unspecified; I21.4 Non-ST elevation (NSTEMI) myocardial infarction; G93.40 Encephalopathy, unspecified; E87.20 Acidosis, unspecified; D57.01 Hb-SS disease with acute chest syndrome; Z86.718 Personal history of other venous thrombosis and embolism; Z51.5 Encounter for palliative care; Z66 Do not resuscitate; Z79.51 Long term (current) use of inhaled steroids; Z99.81 Dependence on supplemental oxygen; Z79.899 Other long term (current) drug therapy; Z86.711 Personal history of pulmonary embolism; G89.4 Chronic pain syndrome; F11.20 Opioid dependence, uncomplicated; R20.8 Other disturbances of skin sensation; Z87.891 Personal history of nicotine dependence; D64.9 Anemia, unspecified; E87.71 Transfusion associated circulatory overload
CPT/HCPCS: 36415; 36600; 71045-TC; 80048-TC; 80053-TC; 80076-TC; 81001; 82248-TC; 82607-TC; 82728-TC; 82784; 82803-TC; 82962-TC; 83010; 83540-TC; 83605-TC; 83615-TC; 83735-TC; 83880; 84100-TC; 84155; 84165; 84443-TC; 84484-TC; 84703-TC; 85025-TC; 85027-TC; 85045-TC; 86334; 86850-TC; 87081-TC; 93970-TC; 94002-TC; 94003-TC; 94799-TC; A4223; C1751; C1894; G0378; J0171; J0610; J0692; J0780; J1170; J1200; J1720; J1815; J2310; J2370; J2405; J2543; J2930; J3370; J3490; J7030; J7040; J7050; J7060; P9016; Q0163; Q0169; Q9967